=== PATIENT | female | born 1995 | race Caucasian/White ===

== ENCOUNTER 2023-04-06 08:00 | Outpatient (CLI) | payer OTHER ==
[2023-04-06 16:46] LABS: BILIRUBIN,URINE NEGATIVE (NEGATIVE); GLUCOSE, URINE (UA) NEGATIVE (NEGATIVE); KETONES,URINE (UA) NEGATIVE (NEGATIVE); LEUKOCYTE ESTERASE, URINE NEGATIVE (NEGATIVE); NITRITE,URINE POSITIVE (NEGATIVE); OCCULT BLOOD,URINE NEGATIVE (NEGATIVE); PH,URINE 5.5 PH (5.0-7.5); PROTEIN,URINE NEGATIVE (NEGATIVE); UROBILINOGEN,URINE 0.2 (NORMAL) E.U./dL (NORMAL)
[2023-04-06 16:54] LABS: BACTERIA,URINE Many /HPF (None Seen); CLARITY,URINE CLEAR (CLEAR); RBC,URINE None Seen /HPF (0-5); SQUAMOUS EPITHELIAL CELL,UR FEW Squamous (<= Few); WBC,URINE 0-3 /HPF (0-5)
== END 2023-04-06 23:59 | disposition home or self-care (01) ==
LOC: LAB.WC 08:00
PROVIDERS: ATTEND Obstetrics & Gynecology
DX: Z34.90 Encounter for supervision of normal pregnancy, unspecified, unspecified trimester (principal)
CPT/HCPCS: 81001; 87077; 87086; 87181

== ENCOUNTER 2023-04-11 14:30 | Outpatient (CLI) | payer OTHER ==
[2023-04-11 15:10] LABS: BASOPHILS # (AUTO) 0.1 10^3/uL (0.0-0.1); BASOPHILS % (AUTO) 0.7 %; EOSINOPHILS # (AUTO) 0.2 10^3/uL (0.0-0.7); HCT - HEMATOCRIT 36.1 % (37.0-47.0); LYMPHOCYTES # (AUTO) 2.5 10^3/uL (1.5-3.5); LYMPHOCYTES % (AUTO) 28.5 %; MEAN CORPUSCULAR HEMOGLOBIN 30.3 pg (27.0-31.0); MEAN CORPUSCULAR HGB CONC 33.2 g/dL (32.0-36.0); MEAN CORPUSCULAR VOLUME 91.2 fL (81.0-99.0); MEAN PLATELET VOLUME 10.9 fL (7.9-10.8); MONOCYTES # (AUTO) 0.7 10^3/uL (0.0-1.0); MONOCYTES % (AUTO) 8.1 %; NEUTROPHILS # (AUTO) 5.4 10^3/uL (1.5-6.6); NEUTROPHILS % (AUTO) 60.4 %; PLT - PLATELET COUNT 299 10^3/uL (130-450); RED BLOOD COUNT 3.96 10^6/uL (4.20-5.40); RED CELL DISTRIBUTION WIDTH 11.8 % (12.0-15.0); WHITE BLOOD COUNT 8.9 x10^3/uL (4.8-10.8)
[2023-04-12 02:08] LABS: HCV AB Non Reactive (Non Reactive); HIV SCREEN 4TH GENERATION Non Reactive (Non Reactive)
[2023-04-12 04:09] LABS: HBsAG SCREEN Negative (Negative)
[2023-04-12 06:10] LABS: RPR Non Reactive (Non Reactive)
[2023-04-12 09:10] LABS: VARICELLA-ZOSTER AB IGG 624 index (Immune >165)
== END 2023-04-11 14:31 | disposition home or self-care (01) ==
LOC: LAB 14:30
PROVIDERS: ATTEND Obstetrics & Gynecology
DX: Z34.90 Encounter for supervision of normal pregnancy, unspecified, unspecified trimester (principal)
CPT/HCPCS: 36415; 84702; 85025; 86592; 86762; 86787; 86803; 86850; 86900; 86901; 87340; 87389

== ENCOUNTER 2023-04-13 11:40 | Outpatient (CLI) | payer OTHER ==
--- NOTE | 2023-04-13 22:25 | Ultrasound Report ---
PROCEDURE: OB 1st Trimester w/TV INDICATIONS: POSITIVE TEST OUTSIDE/PRIOR DATING DATA: Last menstrual period (LMP): 02/15/2023. LMP-based estimated date of delivery (MARKUS): 11/22/2023. First dating scan (date and location): 04/13/2023. Estimated date of delivery (MARKUS) from first dating scan: 11/30/2023. TECHNIQUE: Real-time scanning was performed of the fetus and maternal pelvic organs, with image documentation. Endovaginal scanning was also performed to better visualize the fetus and maternal ovaries. COMPARISON: None. FINDINGS: Intrauterine gestational sac present. Embryo: [place]-rump length measures 0.9 cm. Estimated gestational age is 7 weeks, 0 day. Heart rate: 137 bpm. Other: Tiny perigestational hemorrhage is seen near fundus. Measurement variability in dating: +/- 4 weeks by LMP, +/- 7 days by mean sac diameter (use before 6 weeks gestation if crown-rump length not able to be measured), +/- 5 days by crown-rump length (6-12 weeks gestation). Maternal organs: Ovaries appear within normal limits. IMPRESSION: 1. Single live intrauterine gestation with fetus and yolk sac seen. heart rate is 137 bpm. Kely mated gestational age is 7 weeks, 0 day. 2. Tiny perigestational hematoma near fundus. Reviewed by: Luis Ellison MD on 04/13/2023 10:24 PM PST Approved by: Luis Ellison MD on 04/13/2023 10:24 PM PST Station ID: [id number]
== END 2023-04-13 11:41 | disposition home or self-care (01) ==
LOC: DI 11:40
PROVIDERS: ATTEND Obstetrics & Gynecology
DX: O20.8 Other hemorrhage in early pregnancy (principal); Z3A.01 Less than 8 weeks gestation of pregnancy

== ENCOUNTER 2023-05-02 08:00 | Outpatient (CLI) | payer OTHER ==
[2023-05-02 23:18] LABS: CHLAMYDIA TRACHOMATIS DNA NEGATIVE (NEGATIVE); NEISSERIA GONORRHOEAE DNA NEGATIVE (NEGATIVE); TRICHOMONAS VAGINALIS DNA NEGATIVE (NEGATIVE)
== END 2023-05-02 23:59 | disposition home or self-care (01) ==
LOC: LAB.WC 08:00
PROVIDERS: ATTEND Nurse Practitioner
DX: Z11.3 Encounter for screening for infections with a predominantly sexual mode of transmission (principal)
CPT/HCPCS: 87491; 87591; 87661

== ENCOUNTER 2023-05-30 08:00 | Outpatient (CLI) | payer OTHER ==
[2023-05-30 17:22] LABS: BILIRUBIN,URINE NEGATIVE (NEGATIVE); GLUCOSE, URINE (UA) NEGATIVE (NEGATIVE); KETONES,URINE (UA) NEGATIVE (NEGATIVE); LEUKOCYTE ESTERASE, URINE NEGATIVE (NEGATIVE); NITRITE,URINE NEGATIVE (NEGATIVE); OCCULT BLOOD,URINE NEGATIVE (NEGATIVE); PH,URINE 6.5 PH (5.0-7.5); PROTEIN,URINE NEGATIVE (NEGATIVE); UROBILINOGEN,URINE 0.2 (NORMAL) E.U./dL (NORMAL)
[2023-05-30 18:02] LABS: CLARITY,URINE CLEAR (CLEAR); RBC,URINE None Seen /HPF (0-5); SQUAMOUS EPITHELIAL CELL,UR MOD Squamous (<= Few); WBC,URINE 0-3 /HPF (0-5)
[2023-05-30 18:03] LABS: BACTERIA,URINE Rare /HPF (None Seen); EPITHELIAL CELLS,UR RARE Renal Tubular /HPF (<= Few); MUCUS,URINE Few Strands
== END 2023-05-30 23:59 | disposition home or self-care (01) ==
LOC: LAB.WC 08:00
PROVIDERS: ATTEND Nurse Practitioner
DX: Z34.90 Encounter for supervision of normal pregnancy, unspecified, unspecified trimester (principal); Z36.8A Encounter for antenatal screening for other genetic defects
CPT/HCPCS: 81001; 87086

== ENCOUNTER 2023-05-30 10:45 | Outpatient (CLI) | payer OTHER | END 2023-05-30 10:46 | disposition home or self-care (01) | LOC: LAB 10:45 | PROVIDERS: ATTEND Nurse Practitioner | DX: Z36.8A Encounter for antenatal screening for other genetic defects (principal) ==

== ENCOUNTER 2023-07-19 14:12 | Outpatient (CLI) | payer OTHER ==
--- NOTE | 2023-07-19 16:55 | Ultrasound Report ---
PROCEDURE: OB Anatomy Scan INDICATIONS: SUPERVISION OF OUTSIDE/PRIOR DATING DATA: Last menstrual period (LMP): 02/15/2023. LMP-based estimated date of delivery (MARKUS): 11/22/2023. First dating scan (date and location): 04/13/2023 at . Estimated date of delivery (MARKUS) from first dating scan: 11/30/2023. TECHNIQUE: Real-time scanning was performed of the fetus, with image documentation and biometric measurements. Endovaginal scanning: Not performed. COMPARISON: OB ultrasound, 04/13/2023. FINDINGS: General: A single living intrauterine gestation is present. Presentation: Vertex Placenta: Placental position is posterior, without previa. Amniotic fluid index: 11.2 cm, with the largest pocket measuring 3.3 cm. heart rate: 148 beats per minute. Maternal cervical canal: Closed, measuring 3.5 cm long; normal length is 2.5 cm or more. biometrics: Biparietal diameter: 5.09 cm; 21 weeks 3 days; 71.8%. Head circumference: 18.5 cm; 20 weeks 6 days; 42.3%. Abdominal circumference: 16.2 cm; 21 weeks 2 days; 58.9%. Femur length: 3.3 cm; 20 weeks 2 days; 22.3%. Estimated gestational age from initial scan: 20 weeks 6 days Composite gestational age from present scan: 20 weeks 5 days Estimated weight and percentile: 383.3 g; 45.7% for gestational age. Measurement variability in biometric dating: +/- 10 days from 12-20 weeks gestation, +/- 2 weeks from 20-30 weeks gestation, +/- 3 weeks at 30 weeks gestation or later. Anatomic survey: Neuro: Ventricles are normal at less than 10 mm. Cisterna magna is normal at 3-11 mm. Cerebellum i s normal in size and morphology. Nuchal skin fold: Normal at less than 6 mm between 14 and 20 weeks gestational age. Face: Nose and lips, facial profile are normal. Spine: No evidence for spina bifida. Heart: 4-chambered heart is present, with normal ventricular outflow tracts. Diaphragm: Diaphragm is intact. Stomach: Left-sided stomach is present. Kidneys: No hydronephrosis. Normal is less than 5 mm in 2nd trimester, less than 7 mm in 3rd trimester. Cord: 3 vessel cord has orthotopic insertion. Bladder: Normal in size. Extremities: All 4 extremities are visualized. IMPRESSION: 1. A single living intrauterine gestation with appropriate interval growth. 2. Normal anatomic survey. Reviewed by: Fred White MD on 07/19/2023 4:54 PM PDT Approved by: Fred White MD on 07/19/2023 4:54 PM PDT Station ID: [id number]
== END 2023-07-19 14:13 | disposition home or self-care (01) ==
LOC: DI 14:12
PROVIDERS: ATTEND Nurse Practitioner
DX: Z34.92 Encounter for supervision of normal pregnancy, unspecified, second trimester (principal)

== ENCOUNTER 2023-09-06 11:00 | Outpatient (CLI) | payer OTHER ==
[2023-09-06 12:15] LABS: HCT - HEMATOCRIT 33.3 % (37.0-47.0); HGB - HEMOGLOBIN 11.1 g/dL (12.0-16.0); MEAN CORPUSCULAR HGB CONC 33.3 g/dL (32.0-36.0); MEAN PLATELET VOLUME 10.7 fL (7.9-10.8); RED BLOOD COUNT 3.58 10^6/uL (4.20-5.40); RED CELL DISTRIBUTION WIDTH 13.1 % (12.0-15.0); WHITE BLOOD COUNT 11.5 x10^3/uL (4.8-10.8)
== END 2023-09-06 11:01 | disposition home or self-care (01) ==
LOC: LAB 11:00
PROVIDERS: ATTEND Nurse Practitioner
DX: Z34.90 Encounter for supervision of normal pregnancy, unspecified, unspecified trimester (principal)
CPT/HCPCS: 36415; 82950; 85027; 86592

== ENCOUNTER 2023-10-26 08:48 | Outpatient (CLI) | payer OTHER ==
--- NOTE | 2023-10-26 23:29 | Ultrasound Report ---
PROCEDURE: OB Follow up INDICATIONS: SUPERVISION OF OUTSIDE/PRIOR DATING DATA: Last menstrual period (LMP): 02/15/2023. LMP-based estimated date of delivery (MARKUS): 11/22/2023. First dating scan (date and location): 04/13/2023. Estimated date of delivery (MARKUS) from first dating scan: . The below data below was generated using the working MARKUS of 11/30/2023 TECHNIQUE: Real-time scanning was performed of the fetus, with image documentation and biometric measurements. Endovaginal scanning: Not performed. COMPARISON: 04/13/2023, 07/19/2023 FINDINGS: General: A single living intrauterine gestation is present. Presentation: Breech Placenta: Placental position is posterior, without previa. Amniotic fluid index: 15.2 cm, 57.2% for gestational age. heart rate: 135 beats per minute. Maternal cervical canal: Closed and measures 3.24 cm long; normal length is 2.5 cm or more. biometrics: Biparietal diameter: 8.83 cm, 35 weeks, 5 days, 72.2% Head circumference: 31.78 cm, 35 weeks, 5 days, 33.9% Abdominal circumference: 29.65 cm, 33 weeks, 4 days, 19.0%. Femur length: 6.47 cm, 33 weeks, 3 days, 9.0%. Estimated gestational age from initial scan: 35 weeks, 0 day Composite gestational age from present scan: 34 weeks, 4 days Estimated weight and percentile: 2318.2 g, 20.2 %. Measurement variability in biometric dating: +/- 10 days from 12-20 weeks gestation, +/- 2 weeks from 20-30 weeks gestation, +/- 3 weeks at 30 weeks gestation or more. Other: Not applicable. IMPRESSION: 1. Single live intrauterine gestation with fetus in grade presentation. 2. heart rate is 135 bpm. Normal JUAN A at 15.2 cm and is at 57.2%. 3. Estimated weight is at 20.2%. Reviewed by: Luis Denton MD on 10/26/2023 11:27 PM PDT Approved by: Luis Denton MD on 10/26/2023 11:27 PM PDT Station ID: [id number]
== END 2023-10-26 08:49 | disposition home or self-care (01) ==
LOC: DI 08:48
PROVIDERS: ATTEND Nurse Practitioner
DX: Z34.93 Encounter for supervision of normal pregnancy, unspecified, third trimester (principal)

== ENCOUNTER 2023-11-07 08:00 | Outpatient (CLI) | payer OTHER | END 2023-11-07 23:59 | disposition home or self-care (01) | LOC: LAB.WC 08:00 | PROVIDERS: ATTEND Obstetrics & Gynecology | DX: Z36.85 Encounter for antenatal screening for Streptococcus B (principal) | CPT/HCPCS: 87797 ==

== ENCOUNTER 2023-11-10 05:55 | Outpatient (CLI) | payer OTHER ==
[2023-11-10] MEDS ORDERED: LACTATED RINGERS 1,000 ML IV SCH (06:00)
[2023-11-10] MEDS ORDERED: TERBUTALINE 1 MG/ML VIAL SUBQ PRN (06:05)
[2023-11-10] MEDS ORDERED: ONDANSETRON 4 MG/2 ML VIAL IVP PRN (06:05)
[2023-11-10] MEDS ORDERED: fentaNYL 100 MCG/2 ML VIAL IVP PRN (06:05)
[2023-11-10] MEDS ORDERED: RHO(D) IMMUNE GLOBULIN 300 MCG SYRINGE IM PRN (06:05)
[2023-11-10] MEDS ORDERED: SODIUM CHLORIDE FLUSH 0.9% 10 ML SYRINGE IVP PRN (06:05)
[2023-11-10 06:28] VITALS: BP 112/72; O2SAT 86
[2023-11-10] MEDS ORDERED: MINERAL OIL LIGHT 10 ML TOP SCH (07:00)
[2023-11-10] MEDS ORDERED: ePHEDrine 50 MG/ML VIAL IVP ONE (07:14)
[2023-11-10] MEDS ORDERED: PHENYLEPHRINE HCL 0.5 MG/5 ML AMPULE ONE (07:14)
[2023-11-10] MEDS ORDERED: LIDOCAINE-PF 2% 10 ML AMP SUBQ ONE (07:15)
[2023-11-10] MEDS ORDERED: LIDOCAINE 2%-EPI 1:100000 20 ML MDV ONE (07:21)
[2023-11-10 07:22] LABS: BASOPHILS % (AUTO) 0.4 %; EOSINOPHILS # (AUTO) 0.3 10^3/uL (0.0-0.7); EOSINOPHILS % (AUTO) 3.3 %; HCT - HEMATOCRIT 32.7 % (37.0-47.0); LYMPHOCYTES # (AUTO) 2.1 10^3/uL (1.5-3.5); MEAN CORPUSCULAR HGB CONC 33.6 g/dL (32.0-36.0); MEAN CORPUSCULAR VOLUME 92.1 fL (81.0-99.0); MONOCYTES # (AUTO) 0.9 10^3/uL (0.0-1.0); PLT - PLATELET COUNT 140 10^3/uL (130-450); RED BLOOD COUNT 3.55 10^6/uL (4.20-5.40); RED CELL DISTRIBUTION WIDTH 12.6 % (12.0-15.0); WHITE BLOOD COUNT 9.4 x10^3/uL (4.8-10.8)
--- NOTE | 2023-11-10 07:29 | HISTORY & PHYSICAL EXAMINATION ---
Admit History - Other Maternal History Other Maternal History: Rosa is a 28 yo who presents to L&D at 37+1 weeks gestation for scheduled external cephalic version. EFW 20.2% @ 35 weeks. Blood type, A+. Consented to ECV on 10/30 at which time, risk, benefits, alternatives of external cephalic version were discussed. Risks of heart rate changes being the most common however, they are usually temporary and resolve after cessation of procedure. Risks of placental disruption, bleeding, rupture membranes, urgent section, failure of procedure were also discussed. She verbalized understanding of these risks and opted to proceed with procedure today. 28 yo LMP: 02/15/23 MARKUS by LMP: 11/22/23 US: 04/13/2023 - MARKUS 11/30/2023 Final MARKUS: 11/30/2023 sex: It's a GIRL!!! Bakari. FOB: Babatunde Pre- Weight:153.6 BMI: 25.65 Blood type: A+ Antibody: Negative CBC: PLT 299 HCT 36.1 HGB 12.0 RUB: Non-Immune VZV: Immune HBsAg: Negative HepC: NR RPR/AB-EIA: NR HIV: NR PAP:02/01/22 - normal GC/CT: 05/02/2023 Negative HSV: denies in self and partner Genetic testing: MaterniT 21 Normal; Declines AFP Covid: Flu: FAS: 07/19/23 Placenta: Posterior Cord: 3VC JUAN A: 11.2cm EFW: 383.3g; 45.7%tile 50gm GCT: 09/06/2023- 90 3HR GTT: TDAP: Given 09/26/2023 Breast Pump: 09/04 RPR- NR Antibody screen: 3rd trimester PLT 254 HGB 11.1 HCT 33.3 3rd trimester HIV GBS: Negative Delivery plan: Contraception: Physical Exam Constitutional: alert, no acute distress, well hydrated, well developed, well nourished, appropriate dress. Respiratory: no respiratory distress. Abdomen: nondistended, nontender, no guarding. Psych: affect and mood appropriate, normal interaction, good eye contact. NST: 125 bpm baseline, moderate variability, accelerations present, no decelerations. Reactive NST. [place]: Quiescent Bedside ultrasound: Cephalic Assessment and Plan 1. 28-year-old at 37 weeks 1 day gestation 2. Cephalic presentation -On arrival, patient was in cephalic presentation and procedure no longer indicated. -Will follow-up for routine care. Rosa is a 28 yo who presents to L&D at 37+1 weeks gestation for scheduled external cephalic version. EFW 20.2% @ 35 weeks. Blood type, A+. Consented to ECV on 10/30 at which time, risk, benefits, alternatives of external cephalic version were discussed. Risks of heart rate changes being the most common however, they are usually temporary and resolve after cessation of procedure. Risks of placental disruption, bleeding, rupture membranes, urgent section, failure of procedure were also discussed. She verbalized understanding of these risks and opted to proceed with procedure today. 28 yo LMP: 02/15/23 MARKUS by LMP: 11/22/23 US: 04/13/2023 - MARKUS 11/30/2023 Final MARKUS: 11/30/2023 sex: It's a GIRL!!! Braidyn. FOB: Babatunde Gonzalez Pre- Weight:153.6 BMI: 25.65 Blood type: A+ Antibody: Negative CBC: PLT 299 HCT 36.1 HGB 12.0 RUB: Non-Immune VZV: Immune HBsAg: Negative HepC: NR RPR/AB-EIA: NR HIV: NR PAP:02/01/22 - normal GC/CT: 05/02/2023 Negative HSV: denies in self and partner Genetic testing: MaterniT 21 Normal; Declines AFP Covid: Flu: FAS: 07/19/23 Placenta: Posterior Cord: 3VC JUAN A: 11.2cm EFW: 383.3g; 45.7%tile 50gm GCT: 09/06/2023- 90 3HR GTT: TDAP: Given 09/26/2023 Breast Pump: 09/04 RPR- NR Antibody screen: 3rd trimester PLT 254 HGB 11.1 HCT 33.3 3rd trimester HIV GBS: Negative Delivery plan: Contraception: Physical Exam Constitutional: alert, no acute distress, well hydrated, well developed, well nourished, appropriate dress. Respiratory: no respiratory distress. Abdomen: nondistended, nontender, no guarding. Psych: affect and mood appropriate, normal interaction, good eye contact. NST: 125 bpm baseline, moderate variability, accelerations present, no decelerations. Reactive NST. [place]: Quiescent Bedside ultrasound: Cephalic Assessment and Plan 1. 28-year-old at 37 weeks 1 day gestation 2. Cephalic presentation -On arrival, patient was in cephalic presentation and procedure no longer indicated. -Will follow-up for routine care. - HPI Vital Signs Temperature 98.4 F 11/10/23 06:05 Heart Rate 65 11/10/23 06:05 Respiratory Rate 18 11/10/23 06:05 Blood Pressure 112/72 11/10/23 06:05 O2 Saturation 86 L 11/10/23 06:05 Temperature 98.4 F 11/10/23 06:05 Heart Rate 65 11/10/23 06:05 Respiratory Rate 18 11/10/23 06:05 Blood Pressure 112/72 11/10/23 06:05 O2 Saturation 86 L 11/10/23 06:05 If not protocol: Oxygen Flow, liters/minute Meds/Allgy - Allergies Allergies/Adverse Reactions: Allergies Allergy/AdvReac Type Severity Reaction Status Date / Time No Known Drug Allergies Allergy Verified 11/10/23 06:17 Physical - Abdominal Exam Vital Signs: Temp Pulse Resp BP Pulse Ox O2 Flow Rate 98.4 F 65 18 112/72 86 L 11/10/23 06:05 11/10/23 06:05 11/10/23 06:05 11/10/23 06:05 11/10/23 06:05 Plan for Labor - Plan For Labor I expect patient to be DC'd or transferred within 96 hours.: Yes
[2023-11-10 07:40] LABS: RBC MORPHOLOGY (MULTIPLE) 1+ ANISOCYTOSIS (NORMAL)
== END 2023-11-10 07:45 | disposition home or self-care (01) ==
LOC: WFO 05:55 → FBP 05:56 → WFO 07:45
PROVIDERS: ATTEND Obstetrics & Gynecology
DX: Z34.03 Encounter for supervision of normal first pregnancy, third trimester (principal)
CPT/HCPCS: 36415; 85025; 86850; 86900; 86901; 99215

== ENCOUNTER 2023-11-30 08:05 | Inpatient (IN) | payer OTHER ==
[2023-11-30] MEDS ORDERED: miSOPROStoL 200 MCG TABLET BC PRN (09:11)
[2023-11-30] MEDS ORDERED: SODIUM CHLORIDE FLUSH 0.9% 10 ML SYRINGE IVP PRN (09:11)
[2023-11-30] MEDS ORDERED: ONDANSETRON 4 MG/2 ML VIAL IVP PRN (09:11)
[2023-11-30] MEDS ORDERED: CARBOPROST TROMETHAMINE 250 MCG/ML VIAL IM PRN (09:11)
[2023-11-30] MEDS ORDERED: OXYTOCIN/SODIUM CHLORIDE 500 ML IV PRN (09:11)
[2023-11-30] MEDS ORDERED: OXYTOCIN 10 UNIT/ML VIAL IM PRN (09:11)
[2023-11-30] MEDS ORDERED: METHYLERGONOVINE 0.2 MG/ML VIAL IM PRN (09:11)
[2023-11-30] MEDS ORDERED: TRANEXAMIC ACID IN NACL 1,000 MG/100 ML BAG IV PRN (09:11)
[2023-11-30] MEDS ORDERED: lidocaine 1% 20 ML MDV ID PRN (09:11)
[2023-11-30] MEDS: miSOPROStoL 100 MCG TABLET BC SCH (09:30)
--- NOTE | 2023-11-30 09:51 | HISTORY & PHYSICAL EXAMINATION ---
Admit History - Visit Reason Visit Reason: Other - : 1 Parity: 0 Premature: 0 Ectopic: 0 : 0 Risk/History: positive: None Complications This : positive: None Smoking Status: Never smoker - Mother's Labs Mother's Blood Type: positive: A Mother's RH: positive: Positive GBS: positive: Group B Step Negative Rubella Status: positive: Non-immune - HPI Diagnosis/Indication for NST: Other Current EDU 11/30/23 Gestation 40 Weeks and 0 Days 1 Vital Signs Temperature 36.8 C 11/30/23 08:25 Heart Rate 66 11/30/23 08:25 Respiratory Rate 16 11/30/23 08:25 Blood Pressure 124/77 11/30/23 08:25 Temperature 36.8 C 11/30/23 08:25 Heart Rate 66 11/30/23 08:25 Respiratory Rate 16 11/30/23 08:25 Blood Pressure 124/77 11/30/23 08:25 O2 Saturation If not protocol: Oxygen Flow, liters/minute - NST Procedure FHR baseline 130s, moderate variability, + accels, no decels No contractions palpate via tocometry Meds/Allgy - Allergies Allergies/Adverse Reactions: Allergies Allergy/AdvReac Type Severity Reaction Status Date / Time No Known Drug Allergies Allergy Verified 11/10/23 06:17 Review of Systems - Constitutional Constitutional: denies: Fatigue, Fever, Chills - Eyes Eyes: denies: Pain, Blurred vision, Spots in vision - Cardiovascular Cariovascular: denies: Irregular heart rate, Palpitations, Chest pain, Edema - Respiratory Respiratory: denies: Cough, Wheezing, SOB at rest - Gastrointestinal Gastrointestinal: denies: Abdominal pain, Abdominal distention, Constipation, Diarrhea, Vomiting - Genitourinary Genitourinary: denies: Dysuria - Integumentary Integumentary: denies: Rash, Pruritis - Neurological Neurological: denies: Headache - Psychiatric Psychiatric: denies: Depression, Anxiety - Hematologic/Lymphatic Hematologic/Lymphatic: denies: Anemia - All Other Systems All Other Systems: reports: Reviewed and negative Physical - Abdominal Exam Vital Signs: Temp Pulse Resp BP Pulse Ox O2 Flow Rate 36.8 C 66 16 124/77 11/30/23 08:25 11/30/23 08:25 11/30/23 08:25 11/30/23 08:25 Contraction Frequency (min/apart): none Uterine Resting Tone: positive: Soft - Monitoring Heart Rate Baseline: 130 Strip Review: positive: Category I - Presentation Presentation: positive: Vertex - Vaginal Exam Membranes: positive: Membranes intact Dilation (in cm): 2-3 Effacement (%): 50 Cervical Position: positive: Midposition - Speculum Exam Speculum Exam Performed: positive: No Plan for Labor - Plan For Labor I expect patient to be DC'd or transferred within 96 hours.: Yes Plan for Labor: HPI: This 28 yo @ 40 weeks by 7+0 week ultrasound. She presents today for scheduled elective IOL. Mccabe score: 7. We reviewed management options at length and patient desires augmentation of labor. [facility] her which has remained uncomplicated. Baby was breech 35-37 weeks but spontaneous vertex on the day of her scheduled external cephalic version and has been consistently cephalic since that time. No Headache, visual changes or right upper quadrant abdominal pain. Denies significant N/V. Denies urinary urgency or dysuria. In the event of an emergency, accepts the administration of blood products. ROS: All other symptoms reviewed and were negative except per HPI. LMP: 02/15/2023 MARKUS by LMP:11/22/2023 04/13/2023/ 7+0/ NOT consistent with dates Final MARKUS: 11/30/2023 Recent BP: 112/72 Labs: pending Last u/s EFW: 2312.8g, 20.2%; JUAN A 15.2 @ 35 weeks Total maternal weight gain: 31# (pre weight 153.6) OB Hx: G1: current Medical Hx: No significant Surgical Hx: None Social Hx: Monogamous with male partner. Denies current use of alcohol or tobacco, marijuana or other recreational drugs. Reports that she is safe in current relationship. Family Hx: Denies family history of congenital anomalies, Cystic Fibrosis or chromosomal abnormalities Allergies: NKDA Medications: vitamin, LDASA, PRN Zyrtec & Flonase sex: It's a GIRL!!! FOB: Babatunde Gonzalez Pre- Weight:153.6 BMI: 25.65 Blood type: A+ Antibody: Negative CBC: PLT 299 HCT 36.1 HGB 12.0 RUB: Non-Immune VZV: Immune HBsAg: Negative HepC: NR RPR/AB-EIA: NR HIV: NR PAP:02/01/22 - normal GC/CT: 05/02/2023 Negative HSV: denies in self and partner Genetic testing: MaterniT 21 Normal; Declines AFP FAS: 07/19/23 Placenta: Posterior Cord: 3VC JUAN A: 11.2cm EFW: 383.3g; 45.7%tile 50gm GCT: 09/06/2023- 90 3HR GTT: TDAP: Given 09/26/2023 Breast Pump: 09/04 RPR- NR 3rd trimester PLT 254 HGB 11.1 HCT 33.3 GBS: Negative Physical exam: Normocephalic, atraumatic Heart RRR w/o M/G/R Lungs CTAB Abdomen gravid, soft, nontender. EFW 3200g FHR baseline 135, moderate variability, + accelerations, no decelerations Few contractions with soft resting tone SVE 2-3/50/-2, vertex, membranes intact Bilateral LE's no edema Mood is good. Assessment: 28 yo @ 40weeks gestation by 7 wk U/S Elective induction of labor FHR 135 Cat 1 GBS Negatove Plan: Admit to [facility] for augmentation of labor/ Expectant management Continuous monitoring/ Intermittent heart rate auscultation. Jacuzzi PRN. Nitrous oxide PRN. Epidural PRN Maternal Request. Anticipate .
[2023-11-30 10:09] LABS: BASOPHILS % (AUTO) 0.3 %; EOSINOPHILS # (AUTO) 0.2 10^3/uL (0.0-0.7); EOSINOPHILS % (AUTO) 1.9 %; HCT - HEMATOCRIT 34.4 % (37.0-47.0); HGB - HEMOGLOBIN 11.5 g/dL (12.0-16.0); LYMPHOCYTES # (AUTO) 1.7 10^3/uL (1.5-3.5); LYMPHOCYTES % (AUTO) 16.7 %; MEAN CORPUSCULAR HEMOGLOBIN 30.8 pg (27.0-31.0); MEAN CORPUSCULAR HGB CONC 33.4 g/dL (32.0-36.0); MEAN CORPUSCULAR VOLUME 92.2 fL (81.0-99.0); MEAN PLATELET VOLUME 12.1 fL (7.9-10.8); MONOCYTES # (AUTO) 0.8 10^3/uL (0.0-1.0); MONOCYTES % (AUTO) 7.6 %; NEUTROPHILS # (AUTO) 7.5 10^3/uL (1.5-6.6); NEUTROPHILS % (AUTO) 72.6 %; PLT - PLATELET COUNT 208 10^3/uL (130-450); RED BLOOD COUNT 3.73 10^6/uL (4.20-5.40); RED CELL DISTRIBUTION WIDTH 12.7 % (12.0-15.0); WHITE BLOOD COUNT 10.3 x10^3/uL (4.8-10.8)
--- NOTE | 2023-11-30 13:58 | PHARMACY PROGRESS NOTE ---
- Best Possible Medication History Admit Date and Time: 11/30/23 0911 Processed by: Pharmacy (Medication Reconciliation completed by Wagon Driver Salesperson, Fina) Medications reviewed in ED?: No Medication History completed: Yes Patient Interview: Completed Secondary Source(s): Insurance records As the person ultimately responsible for medication therapy, providers are able to order a medication from an existing home medication list in [facility] via the "Reconcile Routine" prior to Confirmation of that medication by rn support services. Such practice is discouraged except when the physician, in their clinical judgment, deems that a medical need exists for a medication without regard to previous use.
--- NOTE | 2023-11-30 14:23 | PROVIDER PROGRESS NOTE ---
Labor Progress Note - Uterine Monitoring Uterine Monitoring Mode: positive: External toco Contraction Frequency (min/apart): 2-3 Contraction Intensity: positive: Moderate Uterine Resting Tone: positive: Soft - Monitoring Monitor Mode: positive: External ultrasound Heart Rate Baseline: 130 Heart Rate Variability: positive: Moderate (6-25 bmp) Accelerations: positive: Present, 15x15 Decelerations: positive: None Strip Review: positive: Category I - Vaginal Exam Dilation (in cm): 4 Effacement (%): 80 Cervical Position: Midposition - Labor Progress Note Labor Progress Note/Additional Text: S: Breathing through contractions. Reports they are becoming increasingly uncomfortable and desires to get into the jacuzzi. Plans to get an epidural for pain management at some point but is not ready for it quite yet. O: FHR baseline 130s, moderate variability, + accels, no decels Contractions palpate moderate every 2-3 minutes with soft resting tone SVE 4/80/-1, vertex AROM moderate amount of clear fluid A: 28yo @ 40.0 FHR Category I GBS neg P: Continue expectant management. Jacuzzi PRN. Nitrous PRN. Epidural per maternal request. Anticipate .
[2023-11-30] MEDS ORDERED: ROPIVACAINE 0.2% 200 MG/100 ML BAG EP ONE (15:05)
[2023-11-30] MEDS ORDERED: LIDOCAINE 2%-EPI 1:100000 20 ML MDV ONE (15:05)
[2023-11-30] MEDS: LACTATED RINGERS 1,000 ML IV SCH (15:19)
[2023-11-30] MEDS: SODIUM CHLORIDE FLUSH 0.9% 10 ML SYRINGE IVP SCH (15:19)
[2023-11-30] MEDS ORDERED: ePHEDrine 50 MG/ML VIAL IVP PRN (18:20)
[2023-11-30] MEDS ORDERED: NALOXONE 0.4 MG/ML VIAL IVP PRN (18:20)
[2023-11-30] MEDS ORDERED: ROPIVACAINE 0.2% 200 MG/100 ML BAG EP PRN (18:20)
--- NOTE | 2023-11-30 18:20 | ANESTHESIA ---
Pre-Anesthesia VS, & Labs - Diagnosis Active labor - Procedure Vaginal delivery Vital Signs: Temp Pulse Resp BP Pulse Ox O2 Flow Rate 36.8 C 66 16 124/77 11/30/23 08:25 11/30/23 08:25 11/30/23 08:25 11/30/23 08:25 Height: 5 ft 5 in Weight (kg): 83.461 kg Body Mass Index: 30.6 BMI Classification: Obese - NPO Last Fluid Intake: Clear liquids - Is Patient ?: Yes - Lab Results Current Lab Results: Laboratory Tests 11/30/23 10:02: Blood Type A POSITIVE, Antibody Screen NEGATIVE 11/30/23 10:02: WBC 10.3, RBC 3.73 L, Hgb 11.5 L, Hct 34.4 L, MCV 92.2, MCH 3 0.8, MCHC 33.4, RDW 12.7, Plt Count 208, MPV 12.1 H, Neut # (Auto) 7.5 H, Lymph # (Auto) 1.7, [place] # (Auto) 0.8, Eos # (Auto) 0.2, Baso # (Auto) 0.0, Absolute Nucleated RBC 0.00, Nucleated RBC % 0.0 Lab results reviewed: Yes Fish Bones: 11/30/23 10:02 Home Medications and Allergies Home Medications: Ambulatory Orders Famotidine [Acid-Pep] 20 mg PO BID PRN 11/30/23 Pnv No.95/Ferrous Fum/Folic AC [ Tablet] 1 tab PO DAILY 11/30/23 Active Medications Carboprost Tromethamine (Carboprost Tromethamine 250 Mcg/Ml Vial) 250 mcg IM Q15M PRN PRN Reason: Step 4: Hemorrhage protocol Oxytocin/Sodium Chloride (Pitocin/Sodium Chloride) 500 mls @ 999 mls/hr IV PRN PRN; Protocol PRN Reason: POST- HEMORR PREVENTION Stop: 12/05/23 09:11 Tranexamic Acid (Tranexamic 1,000 Mg/100ml-Nacl) 1,000 mg in 100 mls @ 600 mls/hr IV .ONCE PRN PRN Reason: EBL >1200mL and within 3hr Stop: 12/05/23 09:11 Lactated Ringer's (Lr) 1,000 mls @ 100 mls/hr IV .Q10H JOSEY Last Infusion: 11/30/23 15:49 Dose: 125 mls/hr Lidocaine HCl (Lidocaine 1% 20 Ml Mdv) 20 ml ID .ONCE PRN PRN Reason: PERINEAL REPAIR Stop: 12/05/23 09:11 Methylergonovine Maleate (Methylergonovine 0.2 Mg/Ml Vial) 0.2 mg IM .ONCE PRN PRN Reason: Step 2: Hemorrhage protocol Stop: 12/05/23 09:11 Misoprostol (Misoprostol 200 Mcg Tablet) 800 mcg BC .ONCE PRN PRN Reason: Step 3: Hemorrhage protocol Stop: 12/05/23 09:11 Ondansetron HCl (Ondansetron 4 Mg/2 Ml Vial) 4 mg IVP Q4HR PRN PRN Reason: Nausea / Vomiting Oxytocin (Oxytocin 10 Unit/Ml Vial) 10 unit IM .ONCE PRN PRN Reason: Step one: If no IV access Stop: 12/05/23 09:11 Sodium Chloride (Sodium Chloride Flush 0.9% 10 Ml Syringe) 10 ml IVP 0100,0900,1700 [facility] Last Admin: 11/30/23 15:19 Dose: 5 ml Sodium Chloride (Sodium Chloride Flush 0.9% 10 Ml Syringe) 10 ml IVP PRN PRN PRN Reason: NEEDED PER PROVIDER ORDERS Famotidine [Acid-Pep] 20 mg PO BID PRN 11/30/23 Pnv No.95/Ferrous Fum/Folic AC [ Tablet] 1 tab PO DAILY 11/30/23 Allergies/Adverse Reactions: Allergies Allergy/AdvReac Type Severity Reaction Status Date / Time No Known Drug Allergies Allergy Verified 11/10/23 06:17 Anes History & Medical History - Anesthetic History Family history of Anesthesia Complications: Denies Family history of Malignant Hyperthermia: Denies - Medical History Cardiovascular: reports: None Pulmonary: reports: None Gastrointestinal: reports: None Urinary: reports: None Neuro: reports: None Musculoskeletal: reports: None Endocrine/Autoimmune: reports: None Blood Disorders: reports: None Skin: reports: None Smoking Status: Never smoker Psychosocial: reports: No issues indicated History of Cancer?: No - Obstetrical History : 1 Parity: 0 Events: reports: None Complications: reports: None Exam General: Alert, Oriented x3, Cooperative, No acute distress Dental: WNL Mouth Openin Fingerbreadth Mallampati classification: II Thyromental Distance: 4-6 cm Mental/Cognitive Status: Alert/Oriented X3, Normal for patient Plan Anesthesia Type: Epidural Consent for Procedure(s) Verified and Reviewed: Yes Code Status: Attempt Resuscitation ASA classification: 2-Mild systemic disease Is this case an emergency?: No
[2023-11-30] MEDS ORDERED: WITCH HAZEL/GLYCERIN 1 PAD TOP PRN (19:52)
[2023-11-30] MEDS ORDERED: HYDROCORTISONE 1% CREAM 28 GM TUBE PR PRN (19:52)
--- NOTE | 2023-11-30 20:03 | DELIVERY NOTE ---
Delivery Note - Labor Labor: positive: Augmented by ARM - Infant Delivery Method Delivery Method: positive: Spontaneous vaginal delivery - Cervical Ripening Method Cervical Ripening Method: positive: Misoprostil - Presentation Presentation: positive: OLGA - left occiput anterior - Nuchal Cord Nuchal Cord: positive: Present, Reduced - Amniotic Fluid Description Amniotic Fluid Description: positive: Clear - Episiotomy Type Episiotomy Type: positive: None - Laceration Laceration: positive: None - Delivery Outcome Delivery Outcome: positive: Livebirth - [place]: positive: Placed in direct skin contact with mother, Stimulated, Warmed, [place] used sex: positive: Male - Cord Cord: positive: 3 vessels - Placenta Placenta: positive: Intact, Spontaneous - Estimated Blood Loss Estimated Blood Loss (in cc): 222 - Post Delivery Events Post Delivery Events: positive: No post delivery events - Delivery Comments (Free Text/Narrative) Delivery Comments (Free Text/Narrative): Labor: This 28yo @ 40.0wks gestation presents to [facility] for elective IOL. Upon arrival cervical was 2-3/50/-2 and vertex with intact membranes. She received 1 dose of 50mcg BC misoprostol for pre-induction cervical ripening. AROM occurred for augmentation of labor at 1403 and was noted to be a moderate amount of clear fluid. FHR demonstrated a Category I pattern throughout labor. Normal labor course. Epidural placed per maternal request. Pt progressed to c/c/+2 at 1738 with onset of active pushing at 1804. : She progressed to spontaneously deliver a viable female infant on 11/30/2023 @ 1925. Nuchal cord x 1 was reduced. The was placed on maternal abdomen, stimulated, dried, and placed skin to skin. 's were 9/10 at 1 and 5 minutes respectively. Pitocin administered via IV for hemostasis. The umbilical cord was allowed to stop pulsating at which time it was doubly clamped by CNM and cut by patient per her request. 3VC. Cord blood was obtained. Fundal massage and gentle cord applied for active management of the third stage of labor. Placenta delivered spontaneously and intact @ 1940. EBL 222mL. Fourth stage: Uterine fundus firm and there is no excessive bleeding. The perineum, vagina, and cervix were inspected and found to be intact. Skin to skin contact initiated. Family bonding well. Both mother and baby were left in stable condition.
[2023-12-01] MEDS: IBUPROFEN 800 MG TABLET PO SCH (00:50)
[2023-12-01] MEDS: ACETAMINOPHEN 500 MG TABLET PO SCH (00:50)
[2023-12-01] MEDS: DOCUSATE SODIUM 100 MG CAPSULE PO SCH (04:13)
--- NOTE | 2023-12-01 14:00 | PROVIDER PROGRESS NOTE ---
Subjective - Subjective Subjective: S: Bonding well with baby. without difficulty. Pain is well controlled with oral medications. She is ambulating and tolerating a regular diet. She is urinating without difficulty. Her and parents are supportive at the bedside. She desires discharge home tomorrow. O: Vital signs WNL. Heart RRR w/o M/G/R, lungs CTAB, abdomen soft and nontender with fundus firm at U, perineum intact, light lochia, rubra, bilateral LE's trace edmea. Mood is good. A: 28yo -->P1 PPD#1 s/p TSVD viable female Perineum intact Normal recovery P: Continue routine care and medication. Evaluate for discharge home tomorrow. Objective - Vital Signs/Intake & Output Vital Signs: Vital Signs x48h Temp Pulse Resp BP Pulse Ox 12/01/23 12:41 36.6 C 75 17 104/70 98 12/01/23 09:50 37.0 C 74 16 118/74 97 Intake & Output: Intake & Output 11/28/23 11/29/23 11/30/23 12/01/23 23:59 23:59 23:59 23:59 Intake Total 1000.0 Output Total 600 800 Balance 400.0 -800 - Lab Results Fish Bones: 11/30/23 10:02
[2023-12-02 09:23] VITALS: BP 129/76; O2SAT 98
--- NOTE | 2023-12-02 09:47 | DISCHARGE SUMMARY ---
Discharge Summary - HOSPITAL COURSE Hospital Course: Date of Admission: 11/30/2023 Date of Discharge: 12/02/2023 Diagnosis on admission: 1. 28 yo @ 40weeks gestation by 7 wk U/S 2. Elective induction of labor 3. FHR 135 Cat 1 4. GBS Negative Diagnosis on Discharge 1. 28 yo S/P 11/30/2023 @ 1925 2. Intact perineum 3. PPD #2 4. Exclusively Physical exam: Normocephalic, atraumatic Heart RRR w/o M/G/R Lungs CTAB Normal uterine involution, FF below umbilicus scant rubra bleeding Tailbone soreness Bilateral LE's no edema Mood is good. Brief History: She is a patient of [facility] who presented on 11/30/2023 for elective induction of labor at 40+0 weeks. She progressed from 3cm to complete with after a single dose of misoprostol for pre-induction cervical ripening and AROM. Effective epidural for labor anesthesia. She spontaneously delivered a viable female infant APGARS 9 & 10 at 1 & 5 minutes respectively. EBL 222 ml. Intact perineum. weight: 3,418g She has been doing well in her course. She is ambulating and tolerating a regular diet. She is urinating without difficulty and her lochia is normal. Her pain is well controlled without narcotic management. She will be discharged to home today on day #2. We discussed home administration of OTC IBU, tylenol and stool softeners PRN. She intends to follow up with ELI Arellano ([facility]) in 1 week for telehealth. She has been given precautions to call if she has any new or worsening sx such as fevers, chills, abdominal pain, increasing bleeding, or foul-smelling vaginal lochia. preeclamptic precautions reviewed as well. - ALLERGIES Allergies/Adverse Reactions: Allergies Allergy/AdvReac Type Severity Reaction Status Date / Time No Known Drug Allergies Allergy Verified 11/10/23 06:17 - MEDICATIONS Home Medications: Ambulatory Orders Medication Instructions Recorded Confirmed Famotidine [Acid-Pep] 20 mg PO BID PRN 11/30/23 11/30/23 Pnv No.95/Ferrous Fum/Folic AC 1 tab PO DAILY 11/30/23 11/30/23 [ Tablet] - LABS Result Diagrams: 11/30/23 10:02
--- NOTE | 2023-12-02 09:53 | Discharge Plan ---
Discharge Plan Problem Reviewed?: Yes Disposition: Home, Self Care Condition: Good Diet: Regular Activity Restrictions: No Restrictions Shower Restrictions: No Weight Bearing: Full Weight Instruction Topics: Vaginal After No Smoking: If you smoke, Please STOP! Call for help. Follow-up with: Shara Arellano ARNP [Primary Care Provider] - 1 Week
--- NOTE | 2023-12-02 12:28 | Labor Flowsheet ---
Labor Flowsheet Datetime Report Generated by CPN: 12/02/2023 12:28 Datetime: 12/01/2023 04:24 VITAL SIGNS NBP Sys/Maritza/Mean (mmHg): 125 : 68 : 81 Pulse: 57 Datetime: 12/01/2023 02:21 Membranes Ruptured Date/Time: 11/30/2023 14:03 Amniotic Fluid Color: Clear Datetime: 11/30/2023 21:25 SpO2 (%): 97 Datetime: 11/30/2023 19:26 Stage of : Recovery Datetime: 11/30/2023 19:24 STAGE 2 Stage 2 Comments: head @ marker Datetime: 11/30/2023 19:16 LaborFlag: Labor Datetime: 11/30/2023 19:05 COMMUNICATION Communication Comments: SBAR to RN Shrestha Datetime: 11/30/2023 19:00 UTERINE ACTIVITY Monitor Mode: External Frequency (min): 2-3 Quality: Moderate Duration (sec): 60-100 Pattern: Normal: <= 5 Contractions in 10 Minutes Resting Tone (Palpate): Relaxed FHR Baseline Rate : 130 Variability: Moderate 6-25 bpm Accelerations: 15X15 Decelerations: Variable Category: Category I Datetime: 11/30/2023 18:30 ASSESSMENT A Monitor Mode: External US Datetime: 11/30/2023 18:09 I/O Interventions: Ugarte Discontinued Datetime: 11/30/2023 18:02 Patient Care Comments: balloon of ugarte cath deflated Datetime: 11/30/2023 17:38 VAGINAL EXAM Dilatation (cm): 10.0 Effacement (%): 100 Station: 2 Exam by: RN Colleen Datetime: 11/30/2023 17:14 Comments: RN at bedside, EFM adjusted Datetime: 11/30/2023 17:00 Respirations: 14 Datetime: 11/30/2023 16:43 Anesthesia Comments: COMMUNICATIONS SCIENTIST at bedside to assess JOSELITO Datetime: 11/30/2023 16:37 Patient Position/Activity: Left Lateral Datetime: 11/30/2023 16:00 Temperature (C): 36.9 Temperature Route: Oral Pain Relief Measures: Epidural Given Datetime: 11/30/2023 15:43 Monitor Interventions for UA: [employer] Adjusted Datetime: 11/30/2023 15:23 Epidural Procedure: Loading Dose Datetime: 11/30/2023 15:19 PATIENT CARE IV/Blood Work: IV Bolus Started Datetime: 11/30/2023 15:13 PROCEDURE TIME OUT Procedure Verify: Correct Patient Identity; Correct Side and Site are Marked; Accurate Procedure Co nsent Form; Correct Patient Position; Addressed Need to Administer Antibiotics or Fluids for Irrigati on; Safety Precautions Based on Patient History or Medication Use Datetime: 11/30/2023 14:21 PAIN Pain Scale: 8 Pain Location: Abdomen; Back Pain Coping: Breathing Through Contractions Comfort Measures: Hot Shower/Tub/Spa Datetime: 11/30/2023 14:03 Membrane Status: Ruptured Membranes Rupture Method: Artificial Amniotic Fluid Amount: Moderate Membrane Comments: CNM Joel AROM'd Datetime: 11/30/2023 12:00 ANESTHESIA Anesthesia Plans: Local Datetime: 11/30/2023 11:35 Pain Assessment Comments: still feeling back pain in this position but wishes to stay on left side at this time. Datetime: 11/30/2023 11:01 Pain Presence: Intermittent Pain Type: Contraction Datetime: 11/30/2023 10:32 Monitor Interventions for FHR: Ultrasound Adjusted Datetime: 11/30/2023 09:30 MEDICATIONS Cervical Ripening Agents: Cytotec @ Datetime: 11/30/2023 08:57 Cervix, Consistency: Soft Cervix, Position: Midposition
== END 2023-12-02 12:27 | disposition home or self-care (01) | DRG 807 ==
LOC: WFO 08:05 → FBP 08:09 → WFO 09:10 → FBP 09:11
PROVIDERS: ADMIT Nurse Practitioner Obstetrics & Gynecology; ATTEND Nurse Practitioner Obstetrics & Gynecology
PROC: 10E0XZZ Delivery of Products of Conception, External Approach (ICD-10-PCS; principal; 2023-11-30)
PROC: 10907ZC Drainage of Amniotic Fluid, Therapeutic from Products of Conception, Via Natural or Artificial Opening (ICD-10-PCS; 2023-11-30)
PROC: 3E0DXGC Introduction of Other Therapeutic Substance into Mouth and Pharynx, External Approach (ICD-10-PCS; 2023-11-30)
DX: O80 Encounter for full-term uncomplicated delivery (principal); Z37.0 Single live birth; Z3A.40 40 weeks gestation of pregnancy
CPT/HCPCS: 36415; 59409; 85025; 86850; 86900; 86901; A9270; J7120